=== PATIENT | female | born 1985 | race Hispanic/Latino ===

== ENCOUNTER 2018-12-05 06:47 | Emergency (ER) | payer BC ==
[2018-12-05 07:03] VITALS: BP 119/84; PULSE 67; RESP 18; TEMP 97.6; O2SAT 96
--- NOTE | 2018-12-05 07:35 | C.PDOC ---
History Of Present Illness 33 y/o female presents to the ER complaining of right buttock pain and swelling s/p fall last night. Patient states that she fell down 3 steps and landed on her buttock while she was sleeping in the rain. Patient reports that she did not take any medications for the pain.Denies having LOC, headache, dizziness, weakness and numbness. - HPI Time Seen by Provider: 12/05/18 07:21 Chief Complaint (Nursing): Trauma History Per: Patient History/Exam Limitations: no limitations Onset/Duration Of Symptoms: Days Severity: Moderate Recent travel outside of the [place]: No Past Medical History Reviewed: Historical Data, Nursing Documentation, Vital Signs Vital Signs: Last Vital Signs Temp 97.6 F 12/05/18 06:51 Pulse 67 12/05/18 06:51 Resp 18 12/05/18 06:51 BP 119/84 12/05/18 06:51 Pulse Ox 96 12/05/18 06:51 - Medical History PMH: No Chronic Diseases, Deep Vein Thrombosis (left calf January 2009) Surgical History: Tonsillectomy Family History: States: No Known Family Hx - Social History Hx Alcohol Use: No Hx Substance Use: No - Immunization History Hx Tetanus Toxoid Vaccination: No Hx Influenza Vaccination: No Hx Pneumococcal Vaccination: No Review Of Systems Except As Marked, All Systems Reviewed And Found Negative. Musculoskeletal: Positive for: Other. Negative for: Back Pain Neurological: Negative for: Weakness, Numbness Physical Exam - Physical Exam Appears: Non-toxic, No Acute Distress Skin: Normal Color, Warm, Dry Head: Atraumatic, Normacephalic Eye(s): bilateral: Normal Inspection Nose: Normal Oral Mucosa: Moist Neck: Supple Chest: Symmetrical Cardiovascular: Rhythm Regular Respiratory: Normal Breath Sounds, No Rales, No Rhonchi, No Wheezing Back: Normal Inspection, No Muscle Spasm, No Paraspinal Tenderness, Other (tenderness and swelling in lateral aspect right buttock) Extremity: Normal ROM, Other (hematoma to middle of right buttock) Neurological/Psych: Oriented x3, Normal Speech Gait: Steady ED Course And Treatment O2 Sat by Pulse Oximetry: 96 (RA) Pulse Ox Interpretation: Normal Medical Decision Making Medical Decision Making: Plan: --Motrin PO Disposition Counseled Patient/Family Regarding: Diagnosis, Need For Followup - Disposition Referrals: [facility] [Outside] [facility] [employer] [facility] [Outside] Disposition: HOME/ ROUTINE Disposition Time: 08:00 Condition: IMPROVED Additional Instructions: Tylenol or motrin as needed for pain Instructions: Contusion (DC) Forms: [facility] (Hungarian), Work Excuse - POA Present On Arrival: None - Clinical Impression Clinical Impression: Contusion - PA / CONTENT MANAGEMENT CONSULTANT / Resident Statement MD/DO has reviewed & agrees with the documentation as recorded. - Scribe Statement The provider has reviewed the documentation as recorded by the Scribe Lilian Blackwell Provider Attestation All medical record entries made by the Benietzibe were at my direction and personally dictated by me. I have reviewed the chart and agree that the record accurately reflects my personal performance of the history, physical exam, medical decision making, and the department course for this patient. I have also personally directed, reviewed, and agree with the discharge instructions and disposition.
== END 2018-12-05 07:57 | disposition home or self-care (01) ==
LOC: C.ER 06:47
DX: S30.0XXA Contusion of lower back and pelvis, initial encounter (principal); W10.9XXA Fall (on) (from) unspecified stairs and steps, initial encounter

== ENCOUNTER 2018-12-10 09:36 | Emergency (ER) | payer BC ==
[2018-12-10] MEDS ORDERED: Naproxen 550 mg Tab PO STA (10:51)
[2018-12-10] MEDS ORDERED: Naproxen 550 mg Tab PO ONE (11:20)
[2018-12-10 11:32] VITALS: BP 107/72; PULSE 80; RESP 20; TEMP 98; O2SAT 96; BMI 43.0
--- NOTE | 2018-12-10 11:52 | C.PDOC ---
History Of Present Illness Patient presents to ED c/o sacral/tailbone pain since she slipped and fell on wooden stairs last monday. She states she was seen in the ED, but no imaging was done at the time. Her pain has worsened and now radiates down the right leg. Patient denies head injury or LOC, urinary retention, bowel/bladder incontinence, sensory changes. Time Seen by Provider: 12/10/18 10:13 Chief Complaint (Nursing): Lower Extremity Problem/Injury History Per: Patient History/Exam Limitations: no limitations Onset/Duration Of Symptoms: Days Current Symptoms Are (Timing): Still Present Severity: Moderate Past Medical History Reviewed: Historical Data, Nursing Documentation, Vital Signs Vital Signs: Last Vital Signs Temp 98.0 F 12/10/18 10:27 Pulse 80 12/10/18 10:27 Resp 20 12/10/18 10:27 BP 107/72 12/10/18 10:27 Pulse Ox 96 12/10/18 10:27 - Medical History PMH: Deep Vein Thrombosis (left calf January 2009) Surgical History: Tonsillectomy Family History: States: No Known Family Hx - Social History Hx Alcohol Use: No Hx Substance Use: No - Immunization History Hx Tetanus Toxoid Vaccination: No Hx Influenza Vaccination: No Hx Pneumococcal Vaccination: No Review Of Systems Constitutional: Negative for: Fever, Chills Cardiovascular: Negative for: Chest Pain Respiratory: Negative for: Shortness of Breath Gastrointestinal: Negative for: Nausea, Vomiting Musculoskeletal: Positive for: Back Pain (tailbone/sacral pain) Skin: Negative for: Rash Neurological: Negative for: Weakness, Numbness, Headache, Dizziness Physical Exam - Physical Exam Appears: Well, Non-toxic, In Acute Distress (in moderate pain) Skin: Warm, Dry, Ecchymosis (right medial/upper gluteal and right sacral ecchymosis) Head: Atraumatic, Normacephalic Eye(s): bilateral: Normal Inspection Oral Mucosa: Moist Cardiovascular: Rhythm Regular Respiratory: Normal Breath Sounds Gastrointestinal/Abdominal: Normal Exam, Bowel Sounds, Soft, No Tenderness Extremity: Normal ROM, No Deformity, No Swelling Extremity: Bilateral: Atraumatic, Normal Color And Temperature, Normal ROM Pulses: Left Dorsalis Pedis: Normal, Right Dorsalis Pedis: Normal Neurological/Psych: Oriented x3, Normal Speech, Normal Cognition, Normal Motor, Normal Sensation Gait: Steady ED Course And Treatment O2 Sat by Pulse Oximetry: 96 (RA) Pulse Ox Interpretation: Normal - Other Rad sacrum/coccyx Xray X-Ray: Interpreted by Me, Viewed By Me LS spine Xray X-Ray: Interpreted by Me, Viewed By Me (no fractures/listhesis) Progress Note: Upreg, Xrays of LS spine and sacrum/coccys ordered and reviewed. Patient given PO naprosyn. Reevaluation Time: 12:00 Reassessment Condition: Improved (On reassessment, patient's pain has improved and she is ambulating normally in [facility] ED. Xrays neg for acute bony injury. Rxs for Naprosyn, Flexeril. She was instructed to follow up with PMD/clinic in 1-2 days. She understands she shold return to ED if symptoms worsen.) Disposition Counseled Patient/Family Regarding: Studies Performed, Diagnosis, Need For Followup, Rx Given - Disposition Referrals: [facility] [Outside] Disposition: HOME/ ROUTINE Disposition Time: 12:00 Condition: STABLE Additional Instructions: FOLLOW UP WITH YOUR DOCTOR IN 1-2 DAYS USE MEDICATIONS DIRECTED RETURN TO ER IF SYMPTOMS WORSEN Prescriptions: Cyclobenzaprine [Flexeril] 10 mg PO BID PRN #20 tab PRN Reason: Muscle Spasm Naproxen 375 mg PO BID PRN #20 tablet PRN Reason: pain Instructions: Sciatica (DC) Forms: [facility] (Arabic), Work Excuse Print Language: CROATIAN - POA Present On Arrival: Falls Or Trauma - Clinical Impression Clinical Impression: Lumbar radicular pain, Coccyx sprain
--- NOTE | 2018-12-10 11:54 | RAD ---
Date of service: 12/10/2018 PROCEDURE: Radiographs of the lumbar spine Radiographs of the sacrum/or coccyx HISTORY: LOW BACK PAIN AFTER FALL COMPARISON: None available FINDINGS: BONES: Alignment appears satisfactory. No listhesis. No acute displaced fracture identified. Mild degenerative changes including small osteophyte formation. DISC SPACES: Unremarkable. OTHER FINDINGS: None. IMPRESSION: No acute displaced fracture or subluxation identified.
== END 2018-12-10 12:11 | disposition home or self-care (01) ==
LOC: C.ER 09:36
DX: M54.16 Radiculopathy, lumbar region (principal); S33.8XXD Sprain of other parts of lumbar spine and pelvis, subsequent encounter; W07.XXXD Fall from chair, subsequent encounter